=== PATIENT | female | born 1955 | race Caucasian/White ===

== ENCOUNTER 2017-11-30 15:00 | Outpatient (CLI) | payer OTHER ==
--- NOTE | 2017-11-30 15:47 | CT ---
LOW DOSE NONCONTRAST CT THORAX: DATE: 11/30/17. HISTORY: Tobacco use: current smoker. A 40-year history of smoking. COMPARISON: None available. FINDINGS: No noncalcified pulmonary nodule is seen in the lungs bilaterally. There is a calcified granuloma seen in the left upper lobe with calcified left hilar lymph nodes pres ent. No pleural effusion is present. Lack of intravenous contrast does limit sensitivity for evaluation of vascular structures and mediast inum, but no enlarged lymph nodes are appreciated on this exam. Mild vascular calcifications are seen in the coronary arteries. Mild degenerative changes are seen in the thoracic spine. There is an incompletely imaged mass involving the right adrenal gland measuring approximately 3.2 cm . There is decreased attenuation of the liver suggesting fatty infiltration. IMPRESSION: 1. Lung RADS category S, right adrenal mass incompletely imaged or characterized on this exam. CT s can of the abdomen with and without IV contrast is recommended for further evaluation, following the adrenal mass protocol. 2. Lung RADS category S, fatty infiltration of the visualized liver. 3. Lung RADS category 1, no pulmonary nodules are visualized. Continued annual screening with low-d ose CT scan examination in 12 months is recommended. CODE T POS: [place]
== END 2017-11-30 15:01 | disposition home or self-care (01) ==
LOC: CT 15:00
PROVIDERS: ATTEND Student in an Organized Health Care Education/Training Program
DX: F17.210 Nicotine dependence, cigarettes, uncomplicated (principal); E27.8 Other specified disorders of adrenal gland; R91.8 Other nonspecific abnormal finding of lung field
CPT/HCPCS: G0297

== ENCOUNTER 2017-12-01 16:19 | Outpatient (CLI) | payer OTHER | END 2017-12-01 16:20 | disposition home or self-care (01) | LOC: BICMAMMO 16:19 | PROVIDERS: ATTEND Student in an Organized Health Care Education/Training Program | DX: Z12.31 Encounter for screening mammogram for malignant neoplasm of breast (principal); Z87.891 Personal history of nicotine dependence | CPT/HCPCS: 77063; 77067 ==

== ENCOUNTER 2017-12-22 07:19 | Outpatient (CLI) | payer OTHER ==
[2017-12-22 08:31] LABS: Estimated GFR-MDRD - POC Greater than 90
[2017-12-22] MEDS ORDERED: ISOVUE-370 76%-LOCM 1 ML ONE (11:15)
== END 2017-12-22 07:20 | disposition home or self-care (01) ==
LOC: BICCT 07:19
PROVIDERS: ATTEND Student in an Organized Health Care Education/Training Program
DX: E27.8 Other specified disorders of adrenal gland (principal); K76.0 Fatty (change of) liver, not elsewhere classified; E27.9 Disorder of adrenal gland, unspecified
CPT/HCPCS: 74170; 82565

== ENCOUNTER 2018-05-12 07:24 | Outpatient (CLI) | payer OTHER ==
--- NOTE | 2018-05-12 10:27 | CT ---
CT ABDOMEN WITH AND WITHOUT IV CONTRAST: HISTORY: Adrenal mass followup. COMPARISON: 12/22/2017. FINDINGS: There are mild dependent changes of the lung bases. Fatty infiltration of the liver is again seen wi thout evidence of liver mass or abnormal biliary ductal dilatation. No calcified gallstones are note d. The spleen, pancreas, left adrenal gland, and kidneys are normal. The 3.1 cm right adrenal mass is stable in size and imaging characteristics. The adrenal mass demons trates attenuation values of 38 Hounsfield units on the noncontrasted study with a 70.6% absolute was hout and 40.4% relative washout on the postcontrast images. These findings are consistent with a jerry ign lipid-poor adenoma. No free air, free fluid, or lymphadenopathy is noted in the abdomen. The small bowel loops are not a bnormally dilated. There are degenerative changes in the spine. There is no evidence of aneurysmal dilatation of the abdominal aorta. IMPRESSION: 1. Fatty liver. 2. 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 POS: C
[2018-05-12] MEDS ORDERED: Iopamidol 370 76% 100 ML VIAL ONE (16:44)
== END 2018-05-12 07:25 | disposition home or self-care (01) ==
LOC: BICCT 07:24
PROVIDERS: ATTEND Student in an Organized Health Care Education/Training Program
DX: E27.9 Disorder of adrenal gland, unspecified (principal); K76.0 Fatty (change of) liver, not elsewhere classified; D35.01 Benign neoplasm of right adrenal gland
CPT/HCPCS: 74170; 82565

== ENCOUNTER 2018-12-24 15:51 | Outpatient (CLI) | payer OTHER ==
--- NOTE | 2018-12-24 16:36 | MMO ---
Bilateral MAMMO Bilat Screen [facility]. CLINICAL HISTORY: Patient is 63 years old and is seen for screening. The patient has no family history of breast cancer. The patient has no personal history of cancer. VIEWS: The views performed were: bilateral craniocaudal with tomosynthesis and bilateral mediolateral oblique with tomosynthesis. FILMS COMPARED: The present examination has been compared to prior imaging studies performed at [facility] on 09/28/2014, 10/11/2015, 10/15/2016 and 12/01/2017. MAMMOGRAM FINDINGS: The breasts are heterogeneously dense, which could obscure a lesion on mammography. There are no suspicious masses, suspicious calcifications, or new areas of architectural distortion. IMPRESSION: THERE IS NO MAMMOGRAPHIC EVIDENCE OF MALIGNANCY. A ROUTINE FOLLOW-UP MAMMOGRAM IN 1 YEAR IS RECOMMENDED. THE RESULTS OF THIS EXAM WERE SENT TO THE PATIENT. ACR BI-RADS Category 1 - Negative MAMMOGRAPHY NOTE: 1. A negative mammogram report should not delay a biopsy if a dominant of clinically suspicious mass is present. 2. Approximately 10% to 15% of breast cancers are not detected by mammography. 3. Adenosis and dense breasts may obscure an underlying neoplasm. Reported by: LEODAN LINDA MD Electonically Signed: [id number]
== END 2018-12-24 15:52 | disposition home or self-care (01) ==
LOC: BICMAMMO 15:51
PROVIDERS: ATTEND Student in an Organized Health Care Education/Training Program
DX: Z12.31 Encounter for screening mammogram for malignant neoplasm of breast (principal)
CPT/HCPCS: 77063; 77067

== ENCOUNTER 2020-03-01 15:36 | Outpatient (CLI) | payer OTHER ==
--- NOTE | 2020-03-01 16:06 | MMO ---
Bilateral MAMMO Bilat Screen [facility]. CLINICAL HISTORY: Patient is 64 years old and is seen for screening. The patient has no family history of breast cancer. The patient has no personal history of cancer. VIEWS: The views performed were: bilateral craniocaudal with tomosynthesis and bilateral mediolateral oblique with tomosynthesis. FILMS COMPARED: The present examination has been compared to prior imaging studies performed at [facility] on 10/11/2015, 10/15/2016, 12/01/2017 and 12/24/2018. This study has been interpreted with the assistance of computer-aided detection. MAMMOGRAM FINDINGS: The breasts are heterogeneously dense, which could obscure a lesion on mammography. There are stable benign appearing calcifications seen in both breasts. There are no suspicious masses, suspicious calcifications, or new areas of architectural distortion. IMPRESSION: THERE IS NO MAMMOGRAPHIC EVIDENCE OF MALIGNANCY. A ROUTINE FOLLOW-UP MAMMOGRAM IN 1 YEAR IS RECOMMENDED. THE RESULTS OF THIS EXAM WERE SENT TO THE PATIENT. ACR BI-RADS Category 2 - Benign finding MAMMOGRAPHY NOTE: 1. A negative mammogram report should not delay a biopsy if a dominant of clinically suspicious mass is present. 2. Approximately 10% to 15% of breast cancers are not detected by mammography. 3. Adenosis and dense breasts may obscure an underlying neoplasm. Reported by: QUETA WOLF MD Electonically Signed: [id number]
== END 2020-03-01 15:37 | disposition home or self-care (01) ==
LOC: BICMAMMO 15:36
PROVIDERS: ATTEND Family Medicine
DX: Z12.31 Encounter for screening mammogram for malignant neoplasm of breast (principal)
CPT/HCPCS: 77063; 77067

== ENCOUNTER 2021-05-16 15:26 | Outpatient (CLI) | payer OTHER | END 2021-05-16 15:27 | disposition home or self-care (01) | LOC: BICMAMMO 15:26 | PROVIDERS: ATTEND Family Medicine | DX: Z12.31 Encounter for screening mammogram for malignant neoplasm of breast (principal) | CPT/HCPCS: 77063; 77067 ==

== ENCOUNTER 2022-08-29 09:21 | Outpatient (CLI) | payer MEDICARE | END 2022-08-29 09:22 | disposition home or self-care (01) | LOC: BICMAMMO 09:21 | PROVIDERS: ATTEND Family Medicine | DX: Z12.31 Encounter for screening mammogram for malignant neoplasm of breast (principal); Z78.0 Asymptomatic menopausal state; M85.88 Other specified disorders of bone density and structure, other site | CPT/HCPCS: 77063; 77067; 77080 ==

== ENCOUNTER 2022-09-11 09:20 | Outpatient (CLI) | payer MEDICARE | END 2022-09-11 09:21 | disposition home or self-care (01) | LOC: BICCT 09:20 | PROVIDERS: ATTEND Family Medicine | DX: Z12.2 Encounter for screening for malignant neoplasm of respiratory organs (principal); F17.210 Nicotine dependence, cigarettes, uncomplicated | CPT/HCPCS: 71271 ==

== ENCOUNTER 2023-11-10 09:47 | Outpatient (CLI) | payer MEDICARE | END 2023-11-10 09:48 | disposition home or self-care (01) | LOC: BICCT 09:47 | PROVIDERS: ATTEND Family Medicine | DX: Z12.2 Encounter for screening for malignant neoplasm of respiratory organs (principal); F17.211 Nicotine dependence, cigarettes, in remission | CPT/HCPCS: 71271 ==

== ENCOUNTER 2024-04-04 16:16 | Outpatient (CLI) | payer MEDICARE ==
[2024-04-04 16:48] LABS: #Basophils Less than 0.03 10x3/uL (0.0-0.2); %Basophils 0.3 % (0.0-1.0); %Eosinophils 1.7 % (0.0-10.0); %Lymphocytes 36.3 % (21.0-51.0); %Monocytes 8.3 % (0.0-10.0); %Neutrophils 53.1 % (42.0-75.0); Hematocrit 37.7 % (36.0-47.0); Hemoglobin 12.8 g/dL (12.0-16.0); Mean Corpuscular Hemoglobin 30.8 pg (27.0-31.0); Mean Corpuscular Volume 90.8 fL (78.0-98.0); Mean Platelet Volume 10.8 fL (7.4-10.4); Platelet Count 269 10x3/uL (130-400); RBC Distribution Width 12.6 % (11.5-14.5); Red Blood Cell (RBC) Count 4.15 mill/uL (4.20-5.40)
[2024-04-04 17:08] LABS: PTT 24.6 sec (22.9-36.1); Prothrombin Time 13.3 sec (12.0-14.7)
[2024-04-04 17:13] LABS: Anion Gap 14 mmol/L (10-20); BUN (Urea Nitrogen) 21 mg/dL (9.8-20.1); Calc. Creatinine Clearance 0 mL/min (70-130); Calcium 9.6 mg/dL (7.8-10.44); Carbon Dioxide 25 mmol/L (23-31); Chloride 104 mmol/L (98-107); Estimated GFR 79; Glucose 105 mg/dL (80-115); Potassium 3.6 mmol/L (3.5-5.1); Sodium 139 mmol/L (136-145)
[2024-04-04 17:20] LABS: Bacteria/HPF None Seen HPF (None Seen); Bilirubin Negative (Negative); Blood, Urine Negative (Negative); Clarity Clear (Clear); Glucose, Urine (Dipstick) Normal (Negative); Ketone, Urine Trace mg/dL (Negative); Leukocyte Negative Leu/uL (Negative); Nitrite Negative (Negative); Protein, Urine (Dipstick) 10 mg/dL (Neg-Trace); RBC/HPF 0-3 HPF (0-3); Specific Gravity, Urine 1.028 (1.002-1.036); Squamous Epithelial 0-3 HPF (0-3); WBC/HPF 0-3 HPF (0-3)
== END 2024-04-04 16:17 | disposition home or self-care (01) ==
LOC: LABBT 16:16
PROVIDERS: ATTEND Urology
DX: Z01.818 Encounter for other preprocedural examination (principal); N39.46 Mixed incontinence
CPT/HCPCS: 71046; 80048; 81001; 85025; 85610; 85730; 87086; 93005; 93010

== ENCOUNTER 2024-04-14 08:49 | Day surgery (SDC) | payer MEDICARE ==
[2024-04-04 16:31] VITALS: BMI 31.9
[2024-04-14] MEDS ORDERED: Propofol 500 MG/50 ML VIAL ONE (12:20)
[2024-04-14] MEDS ORDERED: Midazolam HCl 2 mg/2 ml Vial ONE (12:31)
[2024-04-14] MEDS ORDERED: fentaNYL 50 mcg/mL 1 mL Vial ONE (12:31)
[2024-04-14] MEDS ORDERED: Bupivacaine 0.25% HCL 30 ML VIAL ONE (12:40)
[2024-04-14] MEDS ORDERED: CEFAZOLIN 1 GM VIAL ONE (12:47)
[2024-04-14] MEDS ORDERED: Lidocaine 1% PF 5 ML VIAL ONE (13:57)
== END 2024-04-14 15:20 | disposition home or self-care (01) ==
LOC: SDC 08:49
PROVIDERS: ATTEND Urology
PROC: 01HY3MZ Insertion of Neurostimulator Lead into Peripheral Nerve, Percutaneous Approach (ICD-10-PCS; principal; 2024-04-14)
DX: N32.81 Overactive bladder (principal); I10 Essential (primary) hypertension; E78.5 Hyperlipidemia, unspecified; F41.9 Anxiety disorder, unspecified; F32.A Depression, unspecified; K76.0 Fatty (change of) liver, not elsewhere classified; F17.200 Nicotine dependence, unspecified, uncomplicated; Z78.0 Asymptomatic menopausal state; Z90.710 Acquired absence of both cervix and uterus; Z98.41 Cataract extraction status, right eye; Z98.42 Cataract extraction status, left eye; Z88.5 Allergy status to narcotic agent; Z79.899 Other long term (current) drug therapy; N39.46 Mixed incontinence
CPT/HCPCS: 64561; C1897; J0665; J0690; J2250; J2704; J3010

== ENCOUNTER 2024-05-23 10:48 | Outpatient (CLI) | payer MEDICARE ==
[2024-05-23 12:10] LABS: #Basophils 0.03 10x3/uL (0.0-0.2); %Basophils 0.5 % (0.0-1.0); %Eosinophils 1.2 % (0.0-10.0); %Lymphocytes 34.6 % (21.0-51.0); %Monocytes 6.5 % (0.0-10.0); Hematocrit 40.5 % (36.0-47.0); Hemoglobin 13.8 g/dL (12.0-16.0); Mean Corpuscular HGB CONC 34.1 g/dL (32.0-36.0); Mean Corpuscular Hemoglobin 31.4 pg (27.0-31.0); Platelet Count 268 10x3/uL (130-400); RBC Distribution Width 13.1 % (11.5-14.5)
[2024-05-23 12:35] LABS: Bacteria/HPF None Seen HPF (None Seen); Bilirubin Negative (Negative); Blood, Urine Negative (Negative); Clarity Clear (Clear); Glucose, Urine (Dipstick) Normal (Negative); Ketone, Urine Negative (Negative); Leukocyte Negative Leu/uL (Negative); Nitrite Negative (Negative); Protein, Urine (Dipstick) Negative (Neg-Trace); RBC/HPF 0-3 HPF (0-3); Specific Gravity, Urine 1.011 (1.002-1.036); Squamous Epithelial 0-3 HPF (0-3); Urobilinogen Normal mg/dL (Less than 2); WBC/HPF 0-3 HPF (0-3); pH, Urine 5.5 (5.0-9.0)
[2024-05-23 12:37] LABS: Anion Gap 11 mmol/L (10-20); BUN (Urea Nitrogen) 15 mg/dL (9.8-20.1); Calc. Creatinine Clearance 0 mL/min (70-130); Calcium 10.3 mg/dL (7.8-10.44); Carbon Dioxide 24 mmol/L (23-31); Chloride 108 mmol/L (98-107); Estimated GFR 90; Glucose 99 mg/dL (80-115); Potassium 4.4 mmol/L (3.5-5.1); Sodium 139 mmol/L (136-145)
== END 2024-05-23 10:49 | disposition home or self-care (01) ==
LOC: LABBT 10:48
PROVIDERS: ATTEND Urology
DX: Z01.818 Encounter for other preprocedural examination (principal); N39.46 Mixed incontinence
CPT/HCPCS: 80048; 81001; 85025; 87086; 93005; 93010

== ENCOUNTER 2024-06-02 07:16 | Day surgery (SDC) | payer MEDICARE ==
[2024-05-23 10:58] VITALS: BMI 30.9
[2024-06-02] MEDS ORDERED: PROPOFOL 20 ML ONE (08:39)
[2024-06-02] MEDS ORDERED: SUCCINYLCHOLINE/SOD CL,ISO/PF 200 MG/10 ML SYRINGE FS ONE (08:42)
[2024-06-02] MEDS ORDERED: Bupivacaine 0.25% HCL 30 ML VIAL ONE (09:12)
[2024-06-02] MEDS ORDERED: Gentamicin 80 MG/2 ML VIAL ONE (09:12)
[2024-06-02 09:18] LABS: INR-International Normal Ratio 0.9; PTT 22.9 sec (22.9-36.1); Prothrombin Time 12.3 sec (12.0-14.7)
[2024-06-02] MEDS ORDERED: CEFAZOLIN 2 GM VIAL ONE (09:34)
[2024-06-02] MEDS ORDERED: Dexamethasone 4 mg/ml Vial ONE ×2 (09:35→10:23)
[2024-06-02] MEDS ORDERED: Ondansetron PF 4 MG/2 ML Vial ONE (09:35)
[2024-06-02] MEDS ORDERED: fentaNYL PF 100 MCG/2 ML SYRINGE ONE (09:36)
[2024-06-02] MEDS ORDERED: ePHEDrine Sulfate 50 MG/10 ML VIAL ONE (10:08)
[2024-06-02] MEDS ORDERED: Ketorolac Tromethamine 30 MG (1 mL) VIAL ONE (10:42)
== END 2024-06-02 13:30 | disposition home or self-care (01) ==
LOC: SDC 07:16
PROVIDERS: ATTEND Urology
PROC: 0JH63BZ Insertion of Single Array Stimulator Generator into Chest Subcutaneous Tissue and Fascia, Percutaneous Approach (ICD-10-PCS; principal; 2024-06-02)
PROC: 01HY3MZ Insertion of Neurostimulator Lead into Peripheral Nerve, Percutaneous Approach (ICD-10-PCS; 2024-06-02)
DX: N39.46 Mixed incontinence (principal); I10 Essential (primary) hypertension; E78.5 Hyperlipidemia, unspecified; Z98.890 Other specified postprocedural states; F17.210 Nicotine dependence, cigarettes, uncomplicated
CPT/HCPCS: 64561; 64590; 72220; 85610; 85730; C1767; C1787; C1897; J0665; J1100; J1580; J1885; J2405; J2704

== ENCOUNTER 2024-06-28 12:12 | Outpatient (CLI) | payer MEDICARE ==
[2024-06-28 14:48] LABS: #Basophils Less than 0.03 10x3/uL (0.0-0.2); %Basophils 0.3 % (0.0-1.0); %Eosinophils 1.6 % (0.0-10.0); %Monocytes 8.3 % (0.0-10.0); %Neutrophils 51.5 % (42.0-75.0); Hemoglobin 13.6 g/dL (12.0-16.0); Mean Corpuscular HGB CONC 33.2 g/dL (32.0-36.0); Mean Corpuscular Hemoglobin 31.2 pg (27.0-31.0); Mean Platelet Volume 11.8 fL (7.4-10.4); Platelet Count 244 10x3/uL (130-400); RBC Distribution Width 13.5 % (11.5-14.5); Red Blood Cell (RBC) Count 4.36 mill/uL (4.20-5.40)
[2024-06-28 15:03] LABS: Anion Gap 13 mmol/L (10-20); BUN (Urea Nitrogen) 16 mg/dL (9.8-20.1); Calc. Creatinine Clearance 0 mL/min (70-130); Calcium 10.1 mg/dL (7.8-10.44); Carbon Dioxide 27 mmol/L (23-31); Chloride 105 mmol/L (98-107); Estimated GFR 96; Glucose 100 mg/dL (80-115); Potassium 3.9 mmol/L (3.5-5.1); Prothrombin Time 12.8 sec (12.0-14.7); Sodium 141 mmol/L (136-145)
[2024-06-28 15:05] LABS: Bacteria/HPF None Seen HPF (None Seen); Bilirubin Negative (Negative); Blood, Urine Negative (Negative); Clarity Clear (Clear); Glucose, Urine (Dipstick) Normal (Negative); Ketone, Urine Negative (Negative); Leukocyte Negative Leu/uL (Negative); Nitrite Negative (Negative); Protein, Urine (Dipstick) Negative (Neg-Trace); RBC/HPF 0-3 HPF (0-3); Specific Gravity, Urine 1.019 (1.002-1.036); Squamous Epithelial None Seen HPF (0-3); Urobilinogen Normal mg/dL (Less than 2); WBC/HPF 0-3 HPF (0-3); pH, Urine 5.5 (5.0-9.0)
== END 2024-06-28 12:13 | disposition home or self-care (01) ==
LOC: LABBT 12:12
PROVIDERS: ATTEND Urology
DX: Z01.818 Encounter for other preprocedural examination (principal); N39.46 Mixed incontinence
CPT/HCPCS: 80048; 81001; 85025; 85610; 85730; 87086; 93005; 93010

== ENCOUNTER 2024-07-07 09:19 | Day surgery (SDC) | payer MEDICARE ==
[2024-07-07] MEDS ORDERED: LevoFLOXacin D5W 500 mg (100 mL) BAG ONE (09:58)
[2024-07-07] MEDS ORDERED: Propofol 1,000 MG/100 ML VIAL IV ONE (12:42)
[2024-07-07] MEDS ORDERED: Midazolam HCl 2 mg/2 ml Vial ONE (12:42)
[2024-07-07] MEDS ORDERED: fentaNYL PF 100 MCG/2 ML SYRINGE ONE (12:42)
[2024-07-07] MEDS ORDERED: KETAMINE 100 MG/ML (5ML VIAL) ONE (12:42)
[2024-07-07] MEDS ORDERED: PHENYLEPHRINE-NS 100 MCG/ML 10 ML SYRINGE ONE (13:18)
[2024-07-07] MEDS ORDERED: Phenazopyridine HCl 100 MG TAB ONE (14:17)
== END 2024-07-07 15:00 | disposition home or self-care (01) ==
LOC: SDC 09:19
PROVIDERS: ATTEND Urology
PROC: 0WHR8YZ Insertion of Other Device into Genitourinary Tract, Via Natural or Artificial Opening Endoscopic (ICD-10-PCS; principal; 2024-07-07)
DX: N39.46 Mixed incontinence (principal); I10 Essential (primary) hypertension; E78.5 Hyperlipidemia, unspecified; Z90.710 Acquired absence of both cervix and uterus; F17.210 Nicotine dependence, cigarettes, uncomplicated; Z79.899 Other long term (current) drug therapy; Z98.890 Other specified postprocedural states
CPT/HCPCS: 51715; J1956; J2250; J2704; L8606